=== PATIENT | female | born 1950 | race Caucasian/White ===

== ENCOUNTER 2017-09-02 11:05 | Day surgery (SDC) | payer OTHER ==
[~2017-09-02] VITALS: Ht 170.2 cm; Wt 79.4 kg
[~2017-09-02 11:05] MED LIST: AMLO5TAB2 PO; ASPI81TA27 PO; CHOL500021 PO; EMPA1TAB PO; FURO20TA3 PO; GLIP-115 PO; ISOSTAB PO; LISI-275 PO
[2017-09-02] MEDS ORDERED: LIDOCAINE 2%HCL (LOCAL ANESTH.) INJ 20ML MDV ONE (11:44)
[2017-09-02] MEDS ORDERED: IODIXANOL 320MG/ML 100ML BTL IV ONE (11:44)
[2017-09-02] MEDS ORDERED: ANGIOMAX 250 MG VIAL IV ONE (12:54)
[2017-09-02] MEDS ORDERED: SODIUM CHL 0.9% 50 ML ONE (12:54)
[2017-09-02] MEDS ORDERED: MIDAZOLAM HCL 1MG/1ML-2 ML VIAL ONE (12:54)
[2017-09-02] MEDS ORDERED: fentaNYL CITRATE 100 MCG/2 ML VL ONE (12:54)
[2017-09-02] MEDS ORDERED: NITROGLYCERIN 0.4MG/DOSE SPRAY 4.9GM ONE (13:16)
== END 2017-09-02 16:15 | disposition home or self-care (01) ==
LOC: CATH 11:05
PROVIDERS: ATTEND Internal Medicine
DX: I73.9 Peripheral vascular disease, unspecified (principal); E66.9 Obesity, unspecified; Z68.27 Body mass index [BMI] 27.0-27.9, adult; I10 Essential (primary) hypertension; E11.9 Type 2 diabetes mellitus without complications
CPT/HCPCS: 36247; 75716; C1725; C1760; C1769; C1887; C1894; J0583; J1644; J2250; J3010; J7030; Q9967; 99152; 99153

== ENCOUNTER 2018-01-25 10:11 | Inpatient (IN) | payer OTHER ==
[~2018-01-25] VITALS: Ht 170.2 cm; Wt 74.4 kg
[2018-01-25 10:56] LABS: Basophils # (auto) 0.1 uL; Eosinophils # (auto) 0.1 uL; Eosinophils % (auto) 1.2 % (0.0-7.0); Hematocrit 36.4 % (36.0-46.0); Lymphocytes # (auto) 1.2 uL; Lymphocytes % (auto) 16.2 % (10.0-50.0); Mean Corpuscular Hemoglobin 29.5 pg (28.0-32.0); Mean Corpuscular Hgb Conc. 32.9 g/dL (32.0-36.0); Mean Corpuscular Volume 89.8 fL (80.0-100.0); Monocytes # (auto) 0.7 uL; Neutrophils # (auto) 5.3 uL; Neutrophils % (auto) 72.6 % (37.0-80.0); Nucleated Red Blood Cells % 0.2 %; Platelet Count (auto) 339 10^3/uL (140-450); Red Blood Cells 4.05 10^6/uL (4.0-5.20); Red Cell Distribution Width 14.5 % (11.8-14.3); White Blood Cell 7.4 10^3/uL (4.4-10.8)
[2018-01-25] MEDS ORDERED: SODIUM CHLORIDE 0.9% 1,000 ML IVB ONE (11:08)
[2018-01-25] MEDS ORDERED: SODIUM CHLORIDE 0.9% 1,000 ML IV ONE (11:08)
[2018-01-25 11:22] LABS: Albumin 2.9 g/dL (3.4-5.0); BUN/Creatinine Ratio 14.1; Bilirubin, Total 0.5 mg/dL (0.2-1.0); Calcium 9.4 mg/dL (8.5-10.1); Magnesium 2.8 mg/dL (1.6-2.6); Potassium 3.6 mmol/L (3.5-5.1); Total Protein 8.7 g/dL (6.4-8.2)
[2018-01-25] MEDS ORDERED: MORPHINE SULF(PF) 0.5MG/ML 10ML VIAL IV PRN (13:30)
[2018-01-25] MEDS ORDERED: NALBUPHINE HCL 10 MG/1ml INJECTION IV PRN (13:30)
[2018-01-25] MEDS ORDERED: TEMAZEPAM 15 MG CAP PO PRN (13:30)
[2018-01-25] MEDS ORDERED: LACTULOSE 20Gm/30ML SOLN PO PRN (13:30)
[2018-01-25] MEDS ORDERED: ACETAMINOPHEN 500 MG TAB PO PRN (13:30)
[2018-01-25] MEDS ORDERED: NITROGLYCERIN 0.4 MG SL TAB SL PRN (13:30)
[2018-01-25] MEDS ORDERED: DEXTROSE (50%) 50ML SYRG IV PRN (13:30)
[2018-01-25] MEDS ORDERED: LABETALOL HCL 5 MG/ML ML 20ML VIAL IV PRN (13:30)
[2018-01-25] MEDS ORDERED: HYDROcodone-ACET 5/325MG TAB PO PRN (13:30)
[2018-01-25] MEDS ORDERED: LORazepam 0.5 MG TAB PO PRN (13:30)
[2018-01-25] MEDS: SODIUM CHLORIDE 0.9% 1,000 ML IV SCH ×2 (13:58→23:32)
[2018-01-25 14:01] LABS: Folate (Folic Acid) 15.57 ng/mL (5.38-24)
[2018-01-25 14:24] LABS: CRP High Sensitivity 4.3 mg/dL (< 0.3)
[2018-01-25] MEDS: InsuLIN REG 1unit/0.01ml Soln (100units/ml) SC SCH ×2 (17:00→21:07)
[2018-01-25] MEDS: ACCU-CHEK COMFORT CURVE STRIP VI SCH ×2 (17:38→21:07)
[2018-01-25 19:57] LABS: Urine Bacteria NONE SEEN /hpf (None Seen); Urine Blood Negative /uL (Negative); Urine Hyaline Cast FEW /lpf (0 - 2); Urine Mucus FEW (None Seen); Urine Specific Gravity 1.013 (1.001-1.035); Urine WBC 2 /hpf (0 - 5)
[2018-01-25 20:16] LABS: Alcohol, Urine < 3.0 mg/dL (0-5); Amphetamine Screen, Urine NEGATIVE (NEGATIVE); Barbiturate Scree,Urine NEGATIVE (NEGATIVE); Benzodiazephine Screen, Urine NEGATIVE (NEGATIVE); Cannabinoid Screen, Urine NEGATIVE (NEGATIVE); Cocaine Screen, Urine NEGATIVE (NEGATIVE); Opiate Scree,Urine NEGATIVE (NEGATIVE); Phencyclidine Screen, Urine NEGATIVE (NEGATIVE)
[2018-01-25 20:30] VITALS: BP 139/49
[2018-01-25 22:00] VITALS: BP 128/54
[2018-01-25] MEDS ORDERED: ATORVASTATIN 20 MG TAB PO SCH (22:00)
[2018-01-26] MEDS: InsuLIN REG 1unit/0.01ml Soln (100units/ml) SC SCH ×4 (04:58→22:00)
[2018-01-26 05:00] VITALS: BP 178/67
[2018-01-26] MEDS: ACCU-CHEK COMFORT CURVE STRIP VI SCH ×4 (05:11→22:00)
[2018-01-26 05:48] VITALS: BP 159/76
[2018-01-26 06:53] LABS: Basophils # (auto) 0.1 uL; Basophils % (auto) 0.8 % (0.0-2.0); Eosinophils # (auto) 0.1 uL; Eosinophils % (auto) 1.8 % (0.0-7.0); Hematocrit 33.8 % (36.0-46.0); Hemoglobin 11.4 g/dL (12.2-16.2); Lymphocytes # (auto) 1.1 uL; Lymphocytes % (auto) 17.4 % (10.0-50.0); Mean Corpuscular Hemoglobin 29.8 pg (28.0-32.0); Mean Corpuscular Hgb Conc. 33.8 g/dL (32.0-36.0); Mean Corpuscular Volume 88.2 fL (80.0-100.0); Monocytes # (auto) 0.9 uL; Monocytes % (auto) 14.2 % (0.0-12.0); Neutrophils % (auto) 65.8 % (37.0-80.0); Nucleated Red Blood Cells % 0.1 %; Platelet Count (auto) 281 10^3/uL (140-450); Red Blood Cells 3.84 10^6/uL (4.0-5.20); Red Cell Distribution Width 14.3 % (11.8-14.3); White Blood Cell 6.1 10^3/uL (4.4-10.8)
[2018-01-26 07:13] LABS: Albumin 2.7 g/dL (3.4-5.0); BUN/Creatinine Ratio 20.6; Bilirubin, Total 0.4 mg/dL (0.2-1.0); Calcium 8.5 mg/dL (8.5-10.1); Total Protein 7.7 g/dL (6.4-8.2)
[2018-01-26] MEDS ORDERED: glipiZIDE 5 MG TAB PO SCH (10:00)
[2018-01-26] MEDS: ENOXAPARIN SOD 40 MG/0.4 ML SYRINGE SC SCH (10:00)
[2018-01-26] MEDS ORDERED: ASPirin-EC 81 mg tab PO SCH (10:00)
[2018-01-26] MEDS: SODIUM CHLORIDE 0.9% 1,000 ML IV SCH ×2 (11:28→15:45)
[2018-01-26] MEDS ORDERED: CLOP75TA41 PO (11:33)
[2018-01-26] MEDS ORDERED: ATOR20TA50 PO (11:44)
[2018-01-26] MEDS ORDERED: CLOPIDOGREL BISULFATE 75 MG TAB PO ONE (11:45)
[2018-01-26] MEDS ORDERED: TRAM50TA2 PO (11:46)
[2018-01-26 13:00] VITALS: BP 160/72
[2018-01-26] MEDS ORDERED: traMADol HCL 50 MG TAB PO PRN (13:30)
[2018-01-26] MEDS ORDERED: LISINOPRIL 5 MG TAB PO ONE (13:45)
[2018-01-26] MEDS ORDERED: CHOLECALCIFEROL (VITD3) 1,000 UNIT TAB PO ONE (13:45)
[2018-01-26] MEDS ORDERED: FUROSEMIDE 20 MG TAB PO ONE (13:45)
[2018-01-26] MEDS ORDERED: POTASSIUM CHL 20 Meq TABLET PO ONE (15:45)
[2018-01-26] MEDS ORDERED: MAGNESIUM SULFATE 1GM/100ML 100 ML IV SCH (16:00)
[2018-01-26] MEDS ORDERED: IOHEXOL 350 MG/ML 100ML IJ ONE (16:37)
[2018-01-26 17:00] VITALS: BP 116/54
[2018-01-26 20:00] VITALS: BP 123/85
[2018-01-26 22:00] VITALS: BP 148/72
[2018-01-26] MEDS ORDERED: ATORVASTATIN 20 MG TAB PO SCH (22:00)
[2018-01-26] MEDS: ISOSORBIDE DINITRATE 10 MG TAB PO SCH (22:00)
[2018-01-26] MEDS: LISINOPRIL 5 MG TAB PO SCH (22:00)
[2018-01-27 05:00] VITALS: BP 139/64
[2018-01-27 05:57] LABS: Basophils # (auto) 0 uL; Basophils % (auto) 0.9 % (0.0-2.0); Eosinophils # (auto) 0.1 uL; Eosinophils % (auto) 1.5 % (0.0-7.0); Hematocrit 32.1 % (36.0-46.0); Lymphocytes # (auto) 0.9 uL; Lymphocytes % (auto) 16.6 % (10.0-50.0); Mean Corpuscular Hemoglobin 30.2 pg (28.0-32.0); Mean Corpuscular Hgb Conc. 34.1 g/dL (32.0-36.0); Mean Corpuscular Volume 88.6 fL (80.0-100.0); Monocytes # (auto) 0.9 uL; Monocytes % (auto) 16.2 % (0.0-12.0); Neutrophils # (auto) 3.5 uL; Neutrophils % (auto) 64.8 % (37.0-80.0); Nucleated Red Blood Cells % 0.1 %; Platelet Count (auto) 286 10^3/uL (140-450); Red Blood Cells 3.63 10^6/uL (4.0-5.20); Red Cell Distribution Width 14.4 % (11.8-14.3); White Blood Cell 5.4 10^3/uL (4.4-10.8)
[2018-01-27] MEDS: SODIUM CHLORIDE 0.9% 1,000 ML IV SCH (06:16)
[2018-01-27 06:19] LABS: Potassium 3.4 mmol/L (3.5-5.1)
[2018-01-27 06:23] LABS: BUN/Creatinine Ratio 16.7; Calcium 8.7 mg/dL (8.5-10.1)
[2018-01-27] MEDS: ACCU-CHEK COMFORT CURVE STRIP VI SCH ×3 (06:34→17:00)
[2018-01-27] MEDS: InsuLIN REG 1unit/0.01ml Soln (100units/ml) SC SCH ×3 (06:34→17:00)
[2018-01-27] MEDS ORDERED: glipiZIDE 5 MG TAB PO SCH (07:00)
[2018-01-27] MEDS ORDERED: JARDIANCE 10 MG TAB PO SCH (07:00)
[2018-01-27 08:00] VITALS: BP 139/64
[2018-01-27 09:06] VITALS: BP 156/59
[2018-01-27] MEDS: ISOSORBIDE DINITRATE 10 MG TAB PO SCH (09:19)
[2018-01-27] MEDS: LISINOPRIL 5 MG TAB PO SCH (09:23)
[2018-01-27] MEDS: ENOXAPARIN SOD 40 MG/0.4 ML SYRINGE SC SCH (10:00)
[2018-01-27] MEDS ORDERED: CHOLECALCIFEROL (VITD3) 1,000 UNIT TAB PO SCH (10:00)
[2018-01-27] MEDS ORDERED: CLOPIDOGREL BISULFATE 75 MG TAB PO SCH (10:00)
[2018-01-27] MEDS ORDERED: LISINOPRIL 5 MG TAB PO SCH (10:00)
[2018-01-27] MEDS ORDERED: FUROSEMIDE 20 MG TAB PO SCH (10:00)
[2018-01-27 13:00] VITALS: BP 160/72
[2018-01-27 16:35] VITALS: BP 166/74
== END 2018-01-27 19:00 | disposition home or self-care (01) | DRG 683 ==
LOC: ER 10:11 → TELE 10:12 → TELE-EAST 20:20 → TELE-WESTW 01-26 19:40
PROVIDERS: ADMIT Internal Medicine; ATTEND Internal Medicine
DX: N17.9 Acute kidney failure, unspecified (principal); E44.0 Moderate protein-calorie malnutrition; I13.0 Hypertensive heart and chronic kidney disease with heart failure and stage 1 through stage 4 chronic kidney disease, or unspecified chronic kidney disease; I95.1 Orthostatic hypotension; E86.0 Dehydration; E86.1 Hypovolemia; N18.3 Chronic kidney disease, stage 3 (moderate); I50.9 Heart failure, unspecified; E11.21 Type 2 diabetes mellitus with diabetic nephropathy; E11.22 Type 2 diabetes mellitus with diabetic chronic kidney disease; I70.90 Unspecified atherosclerosis; E11.51 Type 2 diabetes mellitus with diabetic peripheral angiopathy without gangrene; E11.621 Type 2 diabetes mellitus with foot ulcer; F03.90 Unspecified dementia, unspecified severity, without behavioral disturbance, psychotic disturbance, mood disturbance, and anxiety; I70.0 Atherosclerosis of aorta; K59.00 Constipation, unspecified; L97.509 Non-pressure chronic ulcer of other part of unspecified foot with unspecified severity; Z86.73 Personal history of transient ischemic attack (TIA), and cerebral infarction without residual deficits; Z79.899 Other long term (current) drug therapy; Z79.82 Long term (current) use of aspirin; Z68.25 Body mass index [BMI] 25.0-25.9, adult
CPT/HCPCS: 36415; 71046; 71275; 73630; 80048; 80053; 80307; 81001; 81002; 82550; 82607; 82746; 82962; 83036; 83735; 83880; 84443; 84484; 85025; 85379; 85652; 86141; 87040; 93005; 93306; 93886; 94761; 96360

== ENCOUNTER 2020-01-05 10:26 | Inpatient (IN) | payer OTHER ==
[~2020-01-05] VITALS: Ht 170.2 cm; Wt 89.4 kg
[~2020-01-05 10:26] MED LIST changes: -AMLO5TAB2 PO; -ASPI81TA27 PO; +ATOR20TA50 PO; +CLOP75TA41 PO; -GLIP-115 PO; +GLIP5TAB12 PO; +TRAM50TA2 PO
[2020-01-05 11:10] LABS: Basophils # (auto) 0.1 10 ^3/uL (0-0.2); Basophils % (auto) 1.4 % (0.0-2.0); Eosinophils # (auto) 0.1 10 ^3/uL (0-0.8); Eosinophils % (auto) 1.6 % (0.0-7.0); Hematocrit 43.7 % (36.0-46.0); Hemoglobin 14.5 g/dL (12.2-16.2); Lymphocytes # (auto) 1.4 10 ^3/uL (0.4-5.4); Lymphocytes % (auto) 21.8 % (10.0-50.0); Mean Corpuscular Hemoglobin 32.1 pg (28.0-32.0); Mean Corpuscular Hgb Conc. 33.3 g/dL (32.0-36.0); Mean Corpuscular Volume 96.5 fL (80.0-100.0); Monocytes # (auto) 0.8 10 ^3/uL (0-1.3); Monocytes % (auto) 12.8 % (0.0-12.0); Neutrophils % (auto) 62.4 % (37.0-80.0); Nucleated Red Blood Cells % 0.1 %; Platelet Count (auto) 181 10^3/uL (140-450); Red Blood Cells 4.53 10^6/uL (4.0-5.20); Red Cell Distribution Width 14.6 % (11.8-14.3); White Blood Cell 6.3 10^3/uL (4.4-10.8)
[2020-01-05 11:24] LABS: Albumin 3.2 g/dL (3.4-5.0); Calcium 8.9 mg/dL (8.5-10.1); Potassium 3.6 mmol/L (3.5-5.1)
[2020-01-05 11:35] LABS: BUN/Creatinine Ratio 19.7; Bilirubin, Total 0.9 mg/dL (0.2-1.0); Total Protein 8.1 g/dL (6.4-8.2)
[2020-01-05 12:27] LABS: INR 1.13 (0.9-1.15); Partial Thromboplastin Time 27.1 sec (23.64-32.05)
[2020-01-05] MEDS ORDERED: FUROSEMIDE 20 MG/2 ML VIAL IV ONE (12:30)
[2020-01-05 14:04] LABS: Urine Bacteria NONE SEEN /hpf (None Seen); Urine Blood TRACE /uL (Negative); Urine Mucus FEW (None Seen); Urine Specific Gravity 1.011 (1.001-1.035); Urine WBC <1 /hpf (0 - 5)
[2020-01-05] MEDS ORDERED: NITROGLYCERIN 0.4 MG SL TAB SL PRN (16:30)
[2020-01-05] MEDS ORDERED: ALBUTEROL SULF 2.5 MG/0.5ML(0.5%) NEB SOLN NEB PRN (16:30)
[2020-01-05] MEDS ORDERED: MORPHINE SULF INJ 2 MG/ML SYRINGE 1ML IV PRN (16:30)
[2020-01-05] MEDS ORDERED: DEXTROSE (50%) 50ML SYRG IV PRN (16:30)
[2020-01-05] MEDS ORDERED: FUROSEMIDE 40 MG/4 ML VIAL IV ONE (16:30)
[2020-01-05] MEDS ORDERED: InsuLIN REG 1unit/0.01ml Soln (100units/ml) SC SCH (17:00)
[2020-01-05] MEDS ORDERED: ACCU-CHEK COMFORT CURVE STRIP VI SCH (17:00)
[2020-01-05 18:16] VITALS: BP 172/79
[2020-01-05 18:17] VITALS: BP 169/89
[2020-01-05] MEDS ORDERED: hydrALAZINE HCL 20 MG/ML VL IV PRN (18:45)
[2020-01-05] MEDS ORDERED: amLODIPine BESYLATE 5 MG TAB PO SCH (18:45)
[2020-01-05] MEDS ORDERED: DONEPEZIL HYDROCHLORIDE 5 MG TAB PO SCH (22:00)
[2020-01-05] MEDS ORDERED: ATORVASTATIN 20 MG TAB PO SCH (22:00)
[2020-01-06] MEDS ORDERED: FUROSEMIDE 20 MG/2 ML VIAL IV SCH (06:00)
[2020-01-06] MEDS ORDERED: LISINOPRIL 5 MG TAB PO SCH (10:00)
[2020-01-06] MEDS ORDERED: CLOPIDOGREL BISULFATE 75 MG TAB PO SCH (10:00)
== END 2020-01-05 18:35 | disposition left against medical advice (07) | DRG 291 ==
LOC: ER 10:26 → TELE-CENTR 10:27
PROVIDERS: ADMIT Internal Medicine; ATTEND Internal Medicine
DX: I13.0 Hypertensive heart and chronic kidney disease with heart failure and stage 1 through stage 4 chronic kidney disease, or unspecified chronic kidney disease (principal); I50.33 Acute on chronic diastolic (congestive) heart failure; F03.90 Unspecified dementia, unspecified severity, without behavioral disturbance, psychotic disturbance, mood disturbance, and anxiety; E78.5 Hyperlipidemia, unspecified; E11.22 Type 2 diabetes mellitus with diabetic chronic kidney disease; N18.3 Chronic kidney disease, stage 3 (moderate); I25.10 Atherosclerotic heart disease of native coronary artery without angina pectoris; I48.91 Unspecified atrial fibrillation; Z53.29 Procedure and treatment not carried out because of patient's decision for other reasons; Z79.02 Long term (current) use of antithrombotics/antiplatelets; Z86.73 Personal history of transient ischemic attack (TIA), and cerebral infarction without residual deficits
CPT/HCPCS: 36415; 71046; 80053; 81001; 82962; 83605; 83735; 83880; 84443; 84484; 85025; 85610; 85730; 87040; 93005; G0378

== ENCOUNTER 2021-03-03 06:37 | Day surgery (SDC) | payer OTHER ==
[~2021-03-03] VITALS: Ht 170.2 cm; Wt 87.1 kg
[~2021-03-03 06:37] MED LIST changes: +APIX5TAB PO; -CLOP75TA41 PO; +DONE1TAB88 PO; -EMPA1TAB PO; +FURO1TAB33 PO; -FURO20TA3 PO; -ISOSTAB PO; -TRAM50TA2 PO
[2021-03-03] MEDS ORDERED: LIDOCAINE 2%HCL (LOCAL ANESTH.) INJ 20ML MDV ONE (07:25)
[2021-03-03] MEDS ORDERED: ANGIOMAX 250 MG VIAL IV ONE (08:42)
[2021-03-03] MEDS ORDERED: fentaNYL CITRATE 100 MCG/2 ML VL ONE (08:42)
[2021-03-03] MEDS ORDERED: MIDAZOLAM HCL 2MG/2ML 2ml VIAL (1mg/ml) ONE (08:42)
[2021-03-03] MEDS ORDERED: SODIUM CHL 0.9% 0 ML ONE (08:43)
[2021-03-03] MEDS ORDERED: hydrALAZINE HCL 20 MG/ML VL ONE (09:38)
[2021-03-03] MEDS ORDERED: ONDANSETRON HCL 4 MG/2 ML VIAL IV PRN (10:30)
[2021-03-03] MEDS ORDERED: HYDROcodone-ACET 5/325MG TAB PO PRN (10:30)
[2021-03-03] MEDS ORDERED: ACETAMINOPHEN 500 MG TAB PO PRN (10:30)
== END 2021-03-03 12:37 | disposition home or self-care (01) ==
LOC: CATH 06:37
PROVIDERS: ATTEND Internal Medicine
DX: I70.213 Atherosclerosis of native arteries of extremities with intermittent claudication, bilateral legs (principal); I10 Essential (primary) hypertension; E78.5 Hyperlipidemia, unspecified; Z79.899 Other long term (current) drug therapy; Z20.822 Contact with and (suspected) exposure to COVID-19; Z98.890 Other specified postprocedural states
CPT/HCPCS: 36247; 75716; 93005; C1760; C1769; C1887; C1894; J0360; J1644; J2250; J3010; J7030; U0003; 99152; 99153

== ENCOUNTER 2023-07-31 16:13 | Emergency (ER) | payer OTHER ==
[~2023-07-31] VITALS: Ht 170.2 cm; Wt 82.0 kg
[2023-07-31 22:35] VITALS: BP 132/66; PULSE 68; RESP 14; TEMP 98.4; O2SAT 96
== END 2023-07-31 22:36 | disposition home or self-care (01) ==
LOC: ER 16:13
DX: M79.18 Myalgia, other site (principal); R10.9 Unspecified abdominal pain; I11.0 Hypertensive heart disease with heart failure; I50.9 Heart failure, unspecified; E11.9 Type 2 diabetes mellitus without complications; E78.5 Hyperlipidemia, unspecified; J44.9 Chronic obstructive pulmonary disease, unspecified; Z86.73 Personal history of transient ischemic attack (TIA), and cerebral infarction without residual deficits
CPT/HCPCS: 70450; 71045; 72100; 74176

== ENCOUNTER 2024-01-29 18:29 | Inpatient (IN) | payer OTHER ==
[~2024-01-29] VITALS: Ht 170.2 cm; Wt 76.7 kg
[~2024-01-29 18:29] MED LIST changes: -GLIP5TAB12 PO; +GLIP5TAB21 PO
[2024-01-29 19:06] VITALS: PULSE 79; RESP 16; O2SAT 97
[2024-01-29] MEDS: ONDANSETRON ODT 4 MG TAB PO ONE (20:13)
[2024-01-29] MEDS: SODIUM CHLORIDE 0.9% 1,000 ML IV ONE (20:13)
[2024-01-29 20:42] LABS: Basophils # (auto) 0.1 10 ^3/uL (0-0.2); Basophils % (auto) 0.8 % (0.0-2.0); Eosinophils # (auto) 0.1 10 ^3/uL (0-0.8); Eosinophils % (auto) 0.6 % (0.0-7.0); Hematocrit 37.4 % (36.0-46.0); Hemoglobin 12.3 g/dL (12.2-16.2); Lymphocytes # (auto) 1.1 10 ^3/uL (0.4-5.4); Lymphocytes % (auto) 11.9 % (10.0-50.0); Mean Corpuscular Hemoglobin 30.8 pg (28.0-32.0); Mean Corpuscular Volume 93.3 fL (80.0-100.0); Monocytes # (auto) 0.7 10 ^3/uL (0-1.3); Monocytes % (auto) 7.1 % (0.0-12.0); Neutrophils # (auto) 7.5 10 ^3/uL (1.6-8.6); Neutrophils % (auto) 79.6 % (37.0-80.0); Nucleated Red Blood Cells % 0.1 %; Red Blood Cells 4.01 10^6/uL (4.0-5.20); Red Cell Distribution Width 14.1 % (11.8-14.3); White Blood Cell 9.4 10^3/uL (4.4-10.8)
[2024-01-29 20:50] LABS: Alanine Aminotransferase 25 U/L (7-40); Albumin 3.7 g/dL (3.2-4.8); Alkaline Phosphatase 81 U/L (46-116); Anion Gap 7 (5-15); Aspartate Aminotransferase 32 U/L (13-40); BUN/Creatinine Ratio 12.7 (10.0-20.0); Bilirubin, Total 0.3 mg/dL (0.2-1.0); Blood Urea Nitrogen 21 mg/dL (9-23); Calcium 9.7 mg/dL (8.7-10.4); Carbon Dioxide 26 mmol/L (20-30); Chloride 106 mmol/L (98-107); Glucose 217 mg/dL (74-106); Potassium 4.4 mmol/L (3.5-5.1); Sodium 139 mmol/L (136-145); Total Protein 7.7 g/dL (5.7-8.2)
[2024-01-29 21:21] LABS: INR 1.08 (0.9-1.15); Partial Thromboplastin Time 27.3 SEC (24.5-34.5); Prothrombin Time 11.4 sec (9.3-11.8)
[2024-01-29] MEDS ORDERED: ACETAMINOPHEN 325 MG TAB PO PRN (23:00)
[2024-01-29] MEDS ORDERED: ONDANSETRON HCL 4 MG/2 ML VIAL IV PRN (23:00)
[2024-01-29 23:05] VITALS: PULSE 78; RESP 16; O2SAT 97
[2024-01-30] VITALS (9 sets, daily range): BP systolic 137–168; BP diastolic 54–108; PULSE 55–80; RESP 16–19; TEMP 97.4–98.3; O2SAT 97–100
[2024-01-30] MEDS ORDERED: GLIP5TAB21 PO (04:29)
[2024-01-30] MEDS ORDERED: FURO40TA4 PO (04:29)
[2024-01-30] MEDS ORDERED: MEMA1TAB3 PO (04:55)
[2024-01-30] MEDS ORDERED: LOSA-533 PO (09:54)
[2024-01-30] MEDS: ENOXAPARIN SOD 40 MG/0.4 ML SYRINGE SC SCH (10:54)
[2024-01-30] MEDS: PANTOPRAZOLE 40 MG/10 ML VIAL INJ IV SCH (10:54)
[2024-01-31] VITALS (9 sets, daily range): BP systolic 133–152; BP diastolic 49–96; PULSE 53–90; RESP 18–20; TEMP 97.2–98.6; O2SAT 94–97
[2024-01-31] MEDS ORDERED: AMLO1TAB22 PO (15:12)
[2024-01-31] MEDS ORDERED: MUPI2OIN2 TOP (15:12)
[2024-02-01 01:00] VITALS: BP 135/70; PULSE 80; RESP 20; TEMP 98; O2SAT 95
[2024-02-01 04:50] VITALS: BP 135/78; PULSE 81; RESP 18; TEMP 98; O2SAT 95
[2024-02-01 08:00] VITALS: PULSE 76
[2024-02-01 08:30] VITALS: BP 154/85; PULSE 85; RESP 20; TEMP 97.4; O2SAT 98
== END 2024-02-01 12:12 | disposition home health service (06) | DRG 682 ==
LOC: ER 18:29 → TELE 22:48 → TELE-WESTW 22:57
PROVIDERS: ADMIT Nurse Practitioner Family; ATTEND Nurse Practitioner Family
DX: N17.0 Acute kidney failure with tubular necrosis (principal); G93.41 Metabolic encephalopathy; I50.33 Acute on chronic diastolic (congestive) heart failure; G45.9 Transient cerebral ischemic attack, unspecified; I13.0 Hypertensive heart and chronic kidney disease with heart failure and stage 1 through stage 4 chronic kidney disease, or unspecified chronic kidney disease; N18.9 Chronic kidney disease, unspecified; E78.5 Hyperlipidemia, unspecified; I95.89 Other hypotension; G30.9 Alzheimer's disease, unspecified; F02.80 Dementia in other diseases classified elsewhere, unspecified severity, without behavioral disturbance, psychotic disturbance, mood disturbance, and anxiety; J44.9 Chronic obstructive pulmonary disease, unspecified; E11.22 Type 2 diabetes mellitus with diabetic chronic kidney disease; E11.51 Type 2 diabetes mellitus with diabetic peripheral angiopathy without gangrene; Z79.84 Long term (current) use of oral hypoglycemic drugs; Z86.73 Personal history of transient ischemic attack (TIA), and cerebral infarction without residual deficits
CPT/HCPCS: 36415; 70450; 71045; 80053; 83735; 83880; 84484; 85025; 85610; 85730; 93005; 93306; 96360; 97110; 97163; 97530; 99291; C9113; G0378; Q0162

== ENCOUNTER 2024-09-19 15:22 | Inpatient (IN) | payer OTHER ==
[~2024-09-19] VITALS: Ht 170.2 cm; Wt 65.7 kg
[~2024-09-19 15:22] MED LIST changes: +AMLO1TAB22 PO; -FURO1TAB33 PO; +FURO40TA4 PO; -LISI-275 PO; +LOSA-533 PO; +MEMA1TAB3 PO; +MUPI2OIN2 TOP
[2024-09-19] MEDS: SODIUM CHLORIDE 0.9% 1,000 ML IV ONE (15:42)
--- NOTE | 2024-09-19 15:48 | ED.PDOC ---
Altered Mental Status HPI Comments 74Y F with PMHx DM, HTN, HLD, CHF, CVA X3, TIA, and dementia presents to ED with for chief complaint ALOC. Per , pt was last seen normal 2hrs ago when pt was eating. Pt's then noticed pt breathing hard and she became unresponsive. Upon ED arrival, pt is only responsive to stimuli and is non verbal. Pt is being f/u by chicken raiser Dr. Hilario. Pt is on Eliquis and Amlodipine. Pt only takes the Amlodipine when SBP is >150. Pt's denies h/o tachycardia. No other symptoms reported. Time Seen by MD: 15:25 Primary Care Provider: Coleen Reviewed Notes: Nurses Notes, Medications, Allergies Allergies: Coded Allergies: NO KNOWN ALLERGIES (Unverified , 02/26/21) Home Meds Reported Medications Mupirocin (Pseudomonas Fluores (Mupirocin) 2 % Oin, 2 % TOP BID Apply ointment topically to affected area twice daily. 01/31/24 Amlodipine Besylate (Amlodipine Besylate) 5 Mg Tab, 1 TAB PO DAILY 01/31/24 Losartan Potassium (Losartan Potassium) 25 Mg Tab, 5 MG PO DAILY, MG 01/30/24 Memantine Hydrochloride (Memantine HCl) 5 Mg Tab, 5 MG PO, TAB 01/30/24 Glipizide (Glipizide) 5 Mg Tab, 5 MG PO DAILY for 30 Days, MG 01/30/24 Furosemide (Furosemide) 40 Mg Tab, 40 MG PO BID 01/30/24 Donepezil Hydrochloride (DONEPEZIL HCL) 10 Mg Tab, 10 MG PO DAILY 02/26/21 Apixaban Base (ELIQUIS) 5 Mg Tab, 5 MG PO BID 02/26/21 Atorvastatin Calcium (ATORVASTATIN CALCIUM) 20 Mg Tab, 1 TAB PO DAILY 01/26/18 Cholecalciferol (VITAMIN D) 5,000 Unit Tab, 5000 UNIT PO DAILY, TAB 08/29/17 Information Source: Spouse Mode of Arrival: Wheelchair Severity: Severe Timing: Hours Duration: Since onset Quality: Decreased Alertness, Change in Behavior, Confusion Recent: None History of: CVA, Dementia, Diabetes Associated Signs and Symptoms: None Past Medical History PAST MEDICAL HISTORY: CHF, CVA, Dementia, DM, High Lipids, HTN, TIA Surgical History: Denies all surgeries BOTTLED BEVERAGE INSPECTOR History: No Pertinent BOTTLED BEVERAGE INSPECTOR History Family History Family History: Reviewed,noncontributory to illness Social History Smoker: Non-Smoker Alcohol: Denies ETOH Use Drugs: Denies Drug Use Lives In: Home Unable to Obtain due to: Altered Mental Status, Medical Urgency Physical Exam General Appearance: No Apparent Distress, Normal HEENT: Normal ENT Inspection, Pharynx Normal, TMs Normal Neck: Full Range of Motion, Non-Tender, Normal, Normal Inspection Respiratory: Chest Non-Tender, Lungs Clear, No Accessory Muscle Use, No Respiratory Distress, Normal Breath Sounds Cardiovascular: No Edema, No JVD, No Murmur, No Gallop, Normal Peripheral Pulses, Regular Rate/Rhythm Breast Exam: Deferred Gastrointestinal: No Organomegaly, Non Tender, No Pulsatile Mass, Normal Bowel Sounds, Soft Genitalia: Deferred Pelvic: Deferred Rectal: Deferred Extremities: No calf tenderness, Normal capillary refill, Normal inspection, Normal range of motion, Non-tender, No pedal edema Musculoskeletal : Apperance: Normal Neurologic: Alert, economic research analyst II-XII nml as Tested, No Motor Deficits, Normal Affect, Normal Mood, No Sensory Deficits Cerebellar Function: NOT DONE Reflexes: NOT DONE Skin: Dry, Normal Color, Warm Lymphatic: No Adenopathy Was a procedure done? Was a procedure done?: No Differential Diagnosis (ALOC) Differential Diagnosis: CVA X-Ray, Labs, Meds, VS Vital Signs Date Time Temp Pulse Resp B/P (MAP) Pulse Ox O2 Delivery O2 Flow Rate FiO2 09/19/24 16:48 116 09/19/24 16:00 102 09/19/24 16:00 99 30 140/59 (86) 92 09/19/24 15:51 99.7 195 25 141/73 (95) 97 09/19/24 15:47 107 09/19/24 15:46 187 09/19/24 15:39 158 28 106/64 (78) 92 09/19/24 15:24 128 Lab Test 09/19/24 17:41 09/19/24 16:25 Range/Units Troponin I High Sensitivity Pending 47 *H </=34 ng/L White Blood Count 17.2 H 4.4-10.8 10^3/uL Red Blood Count 3.51 L 4.0-5.20 10^6/uL Hemoglobin 10.1 L 12.2-16.2 g/dL Hematocrit 31.5 L 36.0-46.0 % Mean Corpuscular Volume 89.9 80.0-100.0 fL Mean Corpuscular Hemoglobin 28.8 28.0-32.0 pg Mean Corpuscular Hemoglobin Concent 32.1 32.0-36.0 g/dL Red Cell Distribution Width 14.6 H 11.8-14.3 % Platelet Count 206 140-450 10^3/uL Mean Platelet Volume 10.2 6.9-10.8 fL Neutrophils (%) (Auto) 86.9 H 37.0-80.0 % Lymphocytes (%) (Auto) 6.8 L 10.0-50.0 % Monocytes (%) (Auto) 5.9 0.0-12.0 % Eosinophils (%) (Auto) 0.1 0.0-7.0 % Basophils (%) (Auto) 0.3 0.0-2.0 % Neutrophils # (Auto) 14.9 H 1.6-8.6 10 ^3/uL Lymphocytes # (Auto) 1.2 0.4-5.4 10 ^3/uL Monocytes # (Auto) 1.0 0-1.3 10 ^3/uL Eosinophils # (Auto) 0 0-0.8 10 ^3/uL Basophils # (Auto) 0 0-0.2 10 ^3/uL Nucleated Red Blood Cells 0.0 % Prothrombin Time 12.8 H 9.3-11.8 sec Prothrombin Time INR 1.23 H 0.9-1.15 Activated Partial Thromboplast Time 32.5 24.5-34.5 SEC Sodium Level 146 H 136-145 mmol/L Potassium Level 3.7 3.5-5.1 mmol/L Chloride Level 110 H 98-107 mmol/L Carbon Dioxide Level 26 20-31 mmol/L Anion Gap 10 5-15 Blood Urea Nitrogen 23 9-23 mg/dL Creatinine 1.07 H 0.550-1.02 mg/dL Glomerular Filtration Rate Calc 54 >90 mL/min BUN/Creatinine Ratio 21.5 H 10.0-20.0 Serum Glucose 293 H 74-106 mg/dL Lactic Acid Level 1.7 0.4-2.0 mmol/L Calcium Level 9.2 8.7-10.4 mg/dL Magnesium Level 1.7 1.6-2.6 mg/dL Total Bilirubin 0.5 0.2-1.0 mg/dL Aspartate Amino Transferase (AST) 15 13-40 U/L Alanine Aminotransferase (ALT) 12 7-40 U/L Alkaline Phosphatase 93 46-116 U/L B-Type Natriuretic Peptide 251.09 0-100 pg/mL Total Protein 7.3 5.7-8.2 g/dL Albumin 3.5 3.2-4.8 g/dL Current Medications Medications (Trade) Dose Ordered Sig/Elyssa Route Start Time Stop Time Status Last Admin Sodium Chloride 1,000 ml @ 1,000 mls/hr Q1H ONCE IV 09/19/24 15:45 09/19/24 16:44 DC 09/19/24 15:42 [place] [id number] Ph: [phone] DIAGNOSTIC IMAGING Diagnostic Imaging Report : [id number] Signed PATIENT: YANI PERSON ACCT: [id number] UNIT: [id number] : 1950 LOC: ER ROOM / BED: / AGE / SEX: 74 / F ADM STATUS: REG ER SERVICE [id number] ORDERING PHYSICIAN: JEAN-CLAUDE ROCHA MD PROCEDURE(s): CXRP - CHEST PORTABLE REASON: ams ORDER NUMBER(s): [id number], ACCESSION NUMBER(s): [id number] CHEST RADIOGRAPH Indication: ams Technique: Single frontal view of the chest was obtained Comparison: XY CHEST PORTABLE on DOS: 01/29/24, XY CHEST XRAY 1 VIEW on DOS: 07/31/23 FINDINGS: Lines and Tubes: AED pads over the chest. Lungs: No focal consolidation. Pleura: No effusion. Skin folds over the left upper lung field pneumothorax is of clinical concern recommend CT scan. Cardiomediastinal contours: Unremarkable Bones: No acute osseous abnormality. IMPRESSION: 1. AED pads over the chest. HS:Y ATED BY: ROSALIO EDMONDS Jr., DO DICTATED DATE/TIME: 09/19/241607 SIGNED BY: ROSALIO EDMONDS Jr., SIGNED DATE/TIME: 09/19/241607 CC: [facility] [id number] [place] [employer] [place] [id number] Ph: [phone] DIAGNOSTIC IMAGING Diagnostic Imaging Report : [id number] Signed PATIENT: YANI PERSON ACCT: [id number] UNIT: [id number] : 1950 LOC: ER ROOM / BED: / AGE / SEX: 74 / F ADM STATUS: REG ER SERVICE [id number] ORDERING PHYSICIAN: JEAN-CLAUDE ROCHA MD PROCEDURE(s): CTH - STROKE CTH REASON: ams ORDER NUMBER(s): [id number], ACCESSION NUMBER(s): [id number] Exam: CT STROKE CTH History: ams Technique: [address] images through the posterior fossa and the supratentorial compartment were acquired without contrast and imaged using soft tissue and bone algorithms. RADIATION DOSE: DLP 1158.77 mGy.cm; CTDI vol 53.38 mGy. Comparison: CT HEAD WITHOUT CONTRAST on DOS: 01/29/24 Findings: There is no evidence of an intracranial hemorrhage, acute large vessel infarct, mass effect, or midline shift. Decreased parenchymal attenuation of the left posterior parietal lobe with adjacent encephalomalacia. There is mild cerebral atrophy. Marked calcification of the carotid siphons. The calvarium, orbits, paranasal sinuses, sella, middle ears, and mastoids are unremarkable. The superficial soft tissues are within normal limits. Impression: 1. Age indeterminate left posterior parietal lobe infarct. Recommend MRI for further evaluation. 2. No evidence of intracranial hermorrhage. ATED BY: ZAINA RICHARDS DO DICTATED DATE/TIME: 09/19/241609 SIGNED BY: ZAINA RICHARDS DO SIGNED DATE/TIME: 09/19/241609 CC: Time of 1ST Reevaluation: 15:55 Reevaluation 1ST: Unchanged Patient Education/Counseling: Other Family Education/Counseling: Diagnosis, Treatment Departure 1 Departure Time of Disposition: 17:53 (Patient with an acute stroke. Patient is not a candidate for acute intervention. We will admit patient for further workup) Impression: Primary Impression: Acute stroke due to ischemia Additional Impression: Weakness Disposition: 09 ADMITTED INPATIENT Admit to: [facility] Condition: Guarded Critical Care Note Critical Care Time?: Yes Critical care comment: Acute CVA Authorized and Performed by: Jean-Claude Rocha MD Total critical care time: Approximately 49 minutes Due to a high probability of clinically significant, life threatening deterioration, the patient required my highest level of preparedness to intervene emergently and I personally spent this critical care time directly and personally managing the patient. This critical care time included obtaining a history; examining the patient; pulse oximetry; ordering and review of studies; arranging urgent treatment with development of a management plan; evaluation of patient's response to treatment; frequent reassessment; and, discussions with other providers. This critical care time was performed to assess and manage the high probability of imminent, life-threatening deterioration that could result in multi-organ failure. It was exclusive of separately billable procedures and treating other patients and teaching time. Please see my other sections and the rest of the note for further information on patient assessment and treatment. Stability Stability form required: No Heart Score Heart Score: Heart Score Response (Comments) Value History Slightly Suspicious 0 EKG Repolarization Disturb 1 Age >65 2 Risk Factors >3 or Hx ASHD 2 Troponin 1-2 x's Normal limit 1 Total 6 I personally scribed for JEAN-CLAUDE ROCHA MD ([employer]) on 09/19/24 at 15:48. Electronically submitted by Tari Cheng ([employer]). I personally scribed for JEAN-CLAUDE ROCHA MD (FAUSTINO) on 09/19/24 at 16:40. Electronically submitted by Tari Cheng ([employer]). JEAN-CLAUDE ROCHA MD Sep 19, 2024 15:48
[2024-09-19 16:00] VITALS: RESP 30; O2SAT 92
--- NOTE | 2024-09-19 16:10 | DVH ---
CHEST RADIOGRAPH Indication: ams Technique: Single frontal view of the chest was obtained Comparison: XY CHEST PORTABLE on DOS: 01/29/24, XY CHEST XRAY 1 VIEW on DOS: 07/31/23 FINDINGS: Lines and Tubes: AED pads over the chest. Lungs: No focal consolidation. Pleura: No effusion. Skin folds over the left upper lung field pneumothorax is of clinical concern recommend CT scan. Cardiomediastinal contours: Unremarkable Bones: No acute osseous abnormality. IMPRESSION: 1. AED pads over the chest. HS:Y
--- NOTE | 2024-09-19 16:13 | DVH ---
Exam: CT STROKE CTH History: ams Technique: [address] images through the posterior fossa and the supratentorial compart ment were acquired without contrast and imaged using soft tissue and bone algorithms. RADIATION DOSE: DLP 1158.77 mGy.cm; CTDI vol 53.38 mGy. Comparison: CT HEAD WITHOUT CONTRAST on DOS: 01/29/24 Findings: There is no evidence of an intracranial hemorrhage, acute large vessel infarct, mass effect, or midli ne shift. Decreased parenchymal attenuation of the left posterior parietal lobe with adjacent encephalomalacia. There is mild cerebral atrophy. Marked calcification of the carotid siphons. The calvarium, orbits, paranasal sinuses, sella, middle ears, and mastoids are unremarkable. The superficial soft tissues are within normal limits. Impression: 1. Age indeterminate left posterior parietal lobe infarct. Recommend MRI for further evaluation. 2. No evidence of intracranial hermorrhage.
[2024-09-19 16:37] LABS: Basophils # (auto) 0 10 ^3/uL (0-0.2); Basophils % (auto) 0.3 % (0.0-2.0); Eosinophils # (auto) 0 10 ^3/uL (0-0.8); Eosinophils % (auto) 0.1 % (0.0-7.0); Hematocrit 31.5 % (36.0-46.0); Hemoglobin 10.1 g/dL (12.2-16.2); Lymphocytes # (auto) 1.2 10 ^3/uL (0.4-5.4); Lymphocytes % (auto) 6.8 % (10.0-50.0); Mean Corpuscular Hemoglobin 28.8 pg (28.0-32.0); Mean Corpuscular Hgb Conc. 32.1 g/dL (32.0-36.0); Mean Corpuscular Volume 89.9 fL (80.0-100.0); Monocytes % (auto) 5.9 % (0.0-12.0); Neutrophils # (auto) 14.9 10 ^3/uL (1.6-8.6); Neutrophils % (auto) 86.9 % (37.0-80.0); Platelet Count (auto) 206 10^3/uL (140-450); Red Blood Cells 3.51 10^6/uL (4.0-5.20); Red Cell Distribution Width 14.6 % (11.8-14.3); White Blood Cell 17.2 10^3/uL (4.4-10.8)
--- NOTE | 2024-09-19 16:49 | ECG ---
[facility] Test Date: 2024-09-19 Test Time: 16:48:20 Pat Name: YANI PERSON Department: er Room: 0248T Gender: F Senior Interior Designer: gp : 1950 Requested By: JEAN-CLAUDE ROCHA Order Number: [id number] Reading MD: Efra Ruvalcaba Measurements Intervals [place] Rate: 116 P: -48 UT: 57 QRS: 64 QRSD: 90 T: 100 QT: 352 QTc: 490 Interpretive Statements Sinus or ectopic atrial tachycardia Ventricular premature complex Nonspecific repol abnormality, diffuse leads Electronically Signed On 09-20-2024 12:00:56 PST by Efra Ruvalcaba Please click the below link to view image of tracing.
[2024-09-19 16:50] LABS: Alanine Aminotransferase 12 U/L (7-40); Albumin 3.5 g/dL (3.2-4.8); Alkaline Phosphatase 93 U/L (46-116); Anion Gap 10 (5-15); Aspartate Aminotransferase 15 U/L (13-40); BUN/Creatinine Ratio 21.5 (10.0-20.0); Bilirubin, Total 0.5 mg/dL (0.2-1.0); Blood Urea Nitrogen 23 mg/dL (9-23); Calcium 9.2 mg/dL (8.7-10.4); Carbon Dioxide 26 mmol/L (20-31); Magnesium 1.7 mg/dL (1.6-2.6); Potassium 3.7 mmol/L (3.5-5.1); Total Protein 7.3 g/dL (5.7-8.2)
[2024-09-19 16:56] LABS: INR 1.23 (0.9-1.15); Partial Thromboplastin Time 32.5 SEC (24.5-34.5); Prothrombin Time 12.8 sec (9.3-11.8)
[2024-09-19 17:04] LABS: Chloride 110 mmol/L (98-107); Glucose 293 mg/dL (74-106); Sodium 146 mmol/L (136-145)
[2024-09-19] MEDS: IOHEXOL 350 MG/ML 100ML IJ ONE (17:28)
[2024-09-19] MEDS: IOHEXOL 300 MG/ML 100ML BOTTLE IJ ONE (17:28)
--- NOTE | 2024-09-19 17:31 | BSKYNEURO ---
Lupus Neuro Note # Demographics Consult Type: Acute Stroke Level 1 (0-4.5 hrs) Patient Location: Emergency Room First Name: YANI Last Name: RAZA Date of : 1950 Age: 74 Gender: Female Facility: [facility] Time of Initial Page (): 09/19/2024 16:39 Time of Return Call (): 09/19/2024 16:39 # HPI Chief Complaint: - altered mental state - speech changes History: 74F with history of 3 prior strokes/TIAs, on apixaban presents with sudden onset speech arrest and staring off to the right. Last Known Normal: 1300 # Scores Time of exam and NIHSS (): 09/19/2024 16:42 Level of Consciousness 1a: [0] = Alert; keenly responsive LOC Questions 1b: [2] = Answers neither correctly LOC Commands 1c: [2] = Performs neither correctly Best Gaze 2: [1] = Partial gaze palsy Visual 3: [2] = Complete hemianopia Facial Palsy 4: [2] = Partial paralysis Motor Arm Left 5a: [2] = Some effort against gravity Motor Arm Right 5b: [2] = Some effort against gravity Motor Leg Left 6a: [2] = Some effort against gravity Motor Leg Right 6b: [2] = Some effort against gravity Limb Ataxia 7: [0] = Absent Sensory 8: [2] = Severe to total sensory loss Best Language 9: [2] = Severe aphasia Dysarthria 10: [0] = Normal Extinction and Inattention 11: [2] = Profound juancho-inattention or extinction to more than one modality NIHSS Total: 23 # Data Time Head CT personally read by me (): 09/19/2024 16:[address]: - no bleed - per radiologist read left parietal encephalomalacia CTA Head: - no large vessel occlusion - preliminarily reviewed by me, please refer to radiology read for official reading CTA Neck: - patent vessels - preliminarily reviewed by me, please refer to radiology read for official re ading # Assessment Impression: - Ischemic Stroke (Acute) # Plan Thrombolytic/Intervention: NOT IV Thrombolysis or IA Intervention candidate Thrombolytic Exclusion: > 4.5 hours Intraarterial Exclusion: - no large vessel occlusion (LVO) - non-disabling Target Blood Pressure: - SBP < 220 - DBP < 105 Labs: - hemoglobin A1c - lipid panel Imaging: (urgency: routine): - MRI Brain without contrast Diagnostic Test: - echo without bubble study Therapy/Evaluation: - PT/OT evaluation - speech/swallow consultation Medication: ASA 325 x1 then 81 daily Atorvastatin 80, then tailor to LDL < 70 goal Hold apixaban pending MRI brain, timing to restart dependent on presence/size of acute stroke DVT Prophylaxis: - SCD - chemical DVT prophylaxis Other: - If patient has any neurological deterioration please call me back immediately - permissive hypertension - telemetry monitoring - I have discussed my recommendations with the referring provider Disposition: admit # Logistics Attestation of consult completion: The patient is located at: [facility]. Facility staff participated in the visit. I performed this telemedicine visit from my offsite office utilizing interactive 2 way audio and visual telecommunication technology. Consent: Verbal consent was obtained from the patient and/or family for this encounter. Total time spent in telemedicine encounter: I spent 10 minutes reviewing c linical data and/or imaging, obtaining history, examining the patient, communicating with the onsite care team, and in preparation of this report. Electronically signed at 09/19/2024 17:30 ([place] Time) by Carroll Billingsley MD Yes CARROLL BILLINGSLEY MD Sep 19, 2024 17:31
--- NOTE | 2024-09-19 17:57 | DVH ---
CT ANGIO HEAD/Neck INDICATION: c/f cva EXAM DATE: 09/19/2024 05:14 PM COMPARISON: None TECHNIQUE: AFTER THE INTRAVENOUS INFUSION CONTRAST IMAGES WERE OBTAINED HEAD AND NECK 1 POINT 2 5 MM SLICE SAGITTAL AND CORONAL REFORMATIONS WERE OBTAINED MIP IMAGES WERE SUBMITTED FOR EVALUATION. RADIATION DOSE: CTDIvol: 22.36 mGy, DLP: 804.89 mGy*cm Omnipaque 350: 90 mL PROCEDURE: CT angiogram images were obtained of the head and neck. Coronal and sagittal reformatted i mages were created as well as 3D and/or MIP reconstructions. All CT scans at this medical facility are performed using dose modulation techniques as appropriate t o a performed exam including the following: Automated exposure control was utilized; adjustment of th e MA and/or KV according to patient size; and use of iterative reconstruction technique. FINDINGS: Head: The brain shows normal morphology and booker-white matter differentiation, without intracranial hemorrh age, mass effect, extra-axial fluid collection, or abnormal contrast enhancement. The ventricles are normal in size. The skull and visible facial bones are intact. The paranasal sinuses, mastoid air sammy ls, and middle ear cavities are normally aerated. The soft tissues of the scalp and face are unremark able. On the CT angiographic images, the internal carotid arteries are normal in caliber from the skull bas e to their bifurcations. The anterior and middle cerebral arteries and their branches appear normal. The anterior communicating artery appears normal. The bilateral posterior communicating arteries are normal. The vertebral arteries are codominant. The vertebral, basilar, superior cerebellar, and poste rior cerebral arteries are normal in caliber. No aneurysm, arteriovenous malformation, or stenosis is visible. Neck: The common carotid, internal carotid, external carotid, and vertebral arteries are normal in caliber. The vertebral arteries are codominant. The visualized intracranial arteries are normal. There is no evidence of contrast extravasation, filling defects, stenosis, or dissection. The pharynx and airway are normal. The thyroid, submandibular, and parotid glands appear normal. No l ymphadenopathy is seen. The visualized intracranial structures are unremarkable. Bony fusion cervical spine from C4 through T2. IMPRESSION: 1. No intracranial aneurysm or large vessel occlusion 2. No significant cervical carotid stenosis or large vessel occlusion. 3. Bony fusion of the cervical spine from C4 through T2. Normal CT angiographic findings of the head and neck. HS:Y
--- NOTE | 2024-09-19 17:59 | ECG ---
[facility] Test Date: 2024-09-19 Test Time: 15:35:27 Pat Name: YANI PERSON Department: ER Room: 0248T Gender: F General Repair Mechanic: ISHA : 1950 Requested By: JEAN-CLAUDE ROCHA Order Number: [id number] Reading MD: Efra Ruvalcaba Measurements Intervals [place] Rate: 179 P: 226 PA: 128 QRS: 31 QRSD: 82 T: 198 QT: 262 QTc: 453 Interpretive Statements Supraventricular tachycardia Abnormal R-wave progression, early transition LVH with secondary repolarization abnormality ST depression, probably rate related Electronically Signed On 09-20-2024 12:00:40 PST by Efra Ruvalcaba Please click the below link to view image of tracing.
[2024-09-19 18:19] LABS: Urine Bacteria None Seen /hpf (None Seen)
[2024-09-19 18:44] LABS: Urine Blood Negative /uL (Negative); Urine Clarity Clear (Clear); Urine Color Yellow (Yellow); Urine Hyaline Cast FEW /lpf (0 - 2); Urine Protein, UAD 1+ (Negative); Urine Specific Gravity 1.045 (1.001-1.035); Urine Squamous Epithelial Cell FEW /hpf (<5); Urine Urobilinogen 2 mg/dL (Negative); Urine WBC 1 /HPF (0-5)
[2024-09-19 19:30] VITALS: RESP 12; O2SAT 98
[2024-09-19] MEDS ORDERED: DOCUSATE SOD 100 MG CAP PO PRN (23:00)
[2024-09-19] MEDS ORDERED: hydrALAZINE HCL 20 MG/ML VL IV PRN (23:00)
[2024-09-19] MEDS ORDERED: ONDANSETRON HCL 4 MG/2 ML VIAL IV PRN (23:00)
[2024-09-19] MEDS ORDERED: NITROGLYCERIN 0.4 MG SL TAB SL PRN (23:00)
[2024-09-19] MEDS ORDERED: ACETAMINOPHEN 325 MG TAB PO PRN (23:00)
[2024-09-19] MEDS ORDERED: DEXTROSE (50%) 50ML SYRG IV PRN (23:00)
[2024-09-19] MEDS ORDERED: MORPHINE SULFATE INJ 2 MG/ml SYRG IV PRN (23:00)
[2024-09-20] VITALS (9 sets, daily range): BP systolic 123–160; BP diastolic 52–89; PULSE 63–79; RESP 17–98; TEMP 97.4–99.1; O2SAT 96–100
[2024-09-20] MEDS: InsuLIN REG 1unit/0.01ml Soln (100units/ml) SC SCH (01:38)
[2024-09-20] MEDS: ACCU-CHEK COMFORT CURVE STRIP VI SCH (01:39)
--- NOTE | 2024-09-20 02:21 | DVHHP2 ---
JORGE HONG FILM SOUND ENGINEER 09/20/24 0221: History of Present Illness Reason for Visit: AMS History of Present Illness 74-year-old female with past history of CVA, dementia, COPD, CHF, hypertension, hyperlipidemia Presents with complaints of sudden onset Altered mental status. Information in this HPI is limited due to the patient's current cognitive status And acquired from the patient Franco via telephone. Patient states At her bedline the patient is bedbound and Speaks small phrases softly. He has to carry her and move her around. Also endorses She was having difficulty swallowing her food during breakfast. The patient was sitting down eating lunch She having difficulty swallowing her food, Began To experience difficulty breathing, And suddenly became altered. While in the emergency department patient did go into An accelerated Cardiac rhythm 158 to 187. Endorsed her floral designer salesperson is Dr. Hilario. There is no reported fevers, chills, Prior episodes of shortness of breath, chest pain, leg swelling Cardiovascular: CHF, HTN, hyperipidemia Pulmonary: COPD Endocrine: Diabetes Smoke: No ALCOHOL: none Drugs: None Lives: with Family Review of Systems Constitutional: No: Fever, Chills, Sweats, Weakness, Malaise, Other Eyes: No: Pain, Vision change, Conjunctivae inflammation, Eyelid inflammation, Other, Redness ENT: No: Ear pain, Ear discharge, Nose pain, Nose discharge, Nose congestion, Mouth pain, Mouth swelling, Throat pain, Throat swelling, Other Respiratory: Shortness of breath; No: Cough, Dry, SOB with excertion, Wheezing, Hemoptysis, Pleuritic Pain, Sputum, Wheezing, Other Gastrointestinal: No: Nausea, Vomiting, Abdominal Pain, Diarrhea, Constipation, Melena, Hematochezia, Other Genitourinary: No Dysuria, No Frequency, No Incontinence, No Hematuria, No Retention, No Other Musculoskeletal: No: other, neck pain, shoulder pain, arm pain, back pain, hand pain, leg pain, foot pain Skin: No: Rash, Lesions, Jaundice, Bruising, Other Neurological: Weakness, Confusion; No: Numbness, Incoordination, Change in speech, Seizures, Other Allergies: Coded Allergies: NO KNOWN ALLERGIES (Unverified , 02/26/21) Medications Current Medications Medications Dose Ordered Sig/Elyssa Route Start Time Stop Time Status Last Admin Dose Admin Docusate Sodium 100 mg BIDPRN PRN PO 09/19/24 23:00 Acetaminophen 650 mg Q6HP PRN PO 09/19/24 23:00 Ondansetron HCl 4 mg Q4HP PRN IV 09/19/24 23:00 Enoxaparin Sodium 40 mg DAILY SC 09/20/24 10:00 Nitroglycerin 0.4 mg Q5MINP PRN SL 09/19/24 23:00 Morphine Sulfate 2 mg Q30M PRN IV 09/19/24 23:00 Diagnostic Test (Pha) 1 strip Q6HR 09/20/24 00:00 09/20/24 01:39 1 STRIP Insulin Human Regular Q6HR SC 09/20/24 00:00 09/20/24 01:38 4 UNITS Dextrose 50 ml UD PRN IV 09/19/24 23:00 Aspirin 81 mg DAILY PO 09/20/24 10:00 Atorvastatin Calcium 80 mg DAILY PO 09/20/24 10:00 Hydralazine HCl 10 mg Q6HPRN PRN IV 09/19/24 23:00 Exam Vital Signs Vital Signs Date Time Temp Pulse Resp B/P (MAP) Pulse Ox O2 Delivery O2 Flow Rate FiO2 09/19/24 23:30 68 09/19/24 20:00 19 130/51 (77) 95 09/19/24 19:30 Room Air* 0 21 09/19/24 15:51 99.7 General Appearance: Alert (To self. Not following commands), No acute distress HEENT: Atraumatic, PERRLA, EOMI Respiratory: Clear to auscultation, Normal air movement Cardiovascular: Regular rate, Normal S1, Normal S2 Abdominal: Normal bowel sounds, Soft, No tenderness Extremities: No clubbing, No cyanosis, No edema Skin: No rashes (One centimeter skin tear to sacrum) Neuro: Other (Patient not following commands. Looks when called by her name) Psych/Mental Status: Other Labs/Xrays Labs Test 09/19/24 19:40 09/19/24 18:02 09/19/24 16:25 Range/Units Troponin I High Sensitivity 55 *H </=34 ng/L Urine Color Yellow Yellow Urine Clarity Clear Clear Urine pH 6.0 5.0-9.0 Urine Specific [place] 1.045 H 1.001-1.035 Urine Protein 1+ H Negative Urine Ketones Negative Negative Urine Blood Negative Negative /uL Urine Nitrite Negative Negative Urine Bilirubin Negative Negative Urine Urobilinogen 2 H Negative mg/dL Urine Leukocyte Esterase Negative Negative /uL Urine RBC 2 0 - 4 /hpf Urine Microscopic WBC 1 0-5 /HPF Urine Squamous Epithelial Cells Few <5 /hpf Urine Bacteria None seen None Seen /hpf Urine Hyaline Casts Few 0 - 2 /lpf Urine Glucose 1+ H Normal mg/dL White Blood Count 17.2 H 4.4-10.8 10^3/uL Red Blood Count 3.51 L 4.0-5.20 10^6/uL Hemoglobin 10.1 L 12.2-16.2 g/dL Hematocrit 31.5 L 36.0-46.0 % Mean Corpuscular Volume 89.9 80.0-100.0 fL Mean Corpuscular Hemoglobin 28.8 28.0-32.0 pg Mean Corpuscular Hemoglobin Concent 32.1 32.0-36.0 g/dL Red Cell Distribution Width 14.6 H 11.8-14.3 % Platelet Count 206 140-450 10^3/uL Mean Platelet Volume 10.2 6.9-10.8 fL Neutrophils (%) (Auto) 86.9 H 37.0-80.0 % Lymphocytes (%) (Auto) 6.8 L 10.0-50.0 % Monocytes (%) (Auto) 5.9 0.0-12.0 % Eosinophils (%) (Auto) 0.1 0.0-7.0 % Basophils (%) (Auto) 0.3 0.0-2.0 % Neutrophils # (Auto) 14.9 H 1.6-8.6 10 ^3/uL Lymphocytes # (Auto) 1.2 0.4-5.4 10 ^3/uL Monocytes # (Auto) 1.0 0-1.3 10 ^3/uL Eosinophils # (Auto) 0 0-0.8 10 ^3/uL Basophils # (Auto) 0 0-0.2 10 ^3/uL Nucleated Red Blood Cells 0.0 % Prothrombin Time 12.8 H 9.3-11.8 sec Prothrombin Time INR 1.23 H 0.9-1.15 Activated Partial Thromboplast Time 32.5 24.5-34.5 SEC Sodium Level 146 H 136-145 mmol/L Potassium Level 3.7 3.5-5.1 mmol/L Chloride Level 110 H 98-107 mmol/L Carbon Dioxide Level 26 20-31 mmol/L Anion Gap 10 5-15 Blood Urea Nitrogen 23 9-23 mg/dL Creatinine 1.07 H 0.550-1.02 mg/dL Glomerular Filtration Rate Calc 54 >90 mL/min BUN/Creatinine Ratio 21.5 H 10.0-20.0 Serum Glucose 293 H 74-106 mg/dL Lactic Acid Level 1.7 0.4-2.0 mmol/L Calcium Level 9.2 8.7-10.4 mg/dL Magnesium Level 1.7 1.6-2.6 mg/dL Total Bilirubin 0.5 0.2-1.0 mg/dL Aspartate Amino Transferase (AST) 15 13-40 U/L Alanine Aminotransferase (ALT) 12 7-40 U/L Alkaline Phosphatase 93 46-116 U/L B-Type Natriuretic Peptide 251.09 0-100 pg/mL Total Protein 7.3 5.7-8.2 g/dL Albumin 3.5 3.2-4.8 g/dL Assessment/Plan Assessment/Plan Acute CVA SVT Elevated troponin Leukocytosis Hypertension CHF not in exacerbation Plan Admit telemetry Neurology consult. MRI brain. ASA, statin. Swallow evaluation per speech therapy. Physical therapy evaluation. Permissive hypertension. Cardiology consult. Echocardiogram. Serial troponin. As needed anti-hypertensive for optimal BP management Prophylactic Zosyn. Continue home medications. GI ppx protonix / DVT ppx lovenox Plan discussed with: Patient, Spouse My Orders Orders - JORGE HONG NP Procedure Category Date Status Time Admit ADMIT 09/19/24 Transmitted 22:54 Code Status CODE 09/19/24 Transmitted 22:54 Vital Signs EMILY 09/19/24 In Process 22:54 Review Orders With EMILY 09/19/24 In Process Adm. 22:54 Encourage Activity As EMILY 09/19/24 In Process Tolerate 22:54 Npo (Nothing By DIET 09/20/24 Transmitted Mouth) Diet Breakfast Oxygen By Face Mask RT 09/19/24 Transmitted 22:54 Docusate Sodium PHA 09/19/24 In Process Capsule (Colace 23:00 Acetaminophen Tablet PHA 09/19/24 In Process (Tylenol Tablet) 23:00 Notify Of Changes EMILY 09/19/24 In Process From Base 22:54 Advance Directive EMILY 09/19/24 In Process 22:54 Echo 2d Mode Cardiac US 09/19/24 Logged DOP 22:54 Basic Metabolic Panel LAB 09/20/24 Logged 05:00 Basic Metabolic Panel LAB 09/21/24 Verified 05:00 Basic Metabolic Panel LAB 09/22/24 Verified 05:00 Basic Metabolic Panel LAB 09/23/24 Verified 05:00 Complete Blood Count LAB 09/20/24 Logged 05:00 Complete Blood Count LAB 09/21/24 Verified 05:00 Complete Blood Count LAB 09/22/24 Verified 05:00 Complete Blood Count LAB 09/23/24 Verified 05:00 Complete Blood Count LAB 09/24/24 Verified 05:00 Patient Condition ORDERS 09/19/24 Transmitted 22:54 Allergies EMILY 09/19/24 In Process 22:54 Ondansetron Hcl PHA 09/19/24 In Process (Zofran) 23:00 Enoxaparin Sodium PHA 09/20/24 In Process (Lovenox) 10:00 Sequential EMILY 09/19/24 In Process Compression Device Nitroglycerin PHA 09/19/24 In Process Sublingual (Ntrostat 23:00 Morphine Sulfate PHA 09/19/24 In Process Injection 23:00 Stat Ekg For Chest EMILY 09/19/24 In Process Pain 22:54 Notify Of Changes EMILY 09/19/24 In Process From Base 22:54 Biofuels Plant Construction Worker For EMILY 09/19/24 In Process 24 Hours 22:54 Emergency Dysrhythmia EMILY 09/19/24 In Process Protocol 22:54 Rhythm Strips Once EMILY 09/19/24 In Process Every Shift 22:54 Oxygen By Nasal RT 09/19/24 Transmitted Cannula 22:54 Glucose Blood PHA 09/20/24 In Process (Accu-Chek Comfort 00:00 Insulin R (Human) PHA 09/20/24 In Process (Insulin R) 00:00 Dextrose 50% Syringe PHA 09/19/24 In Process 23:00 * Cardiology Consult CONS 09/19/24 Transmitted 22:54 * Neurology Consult CONS 09/19/24 Transmitted 22:54 Brain Head Wo Contrast MRI 09/19/24 Logged 22:54 Aspirin Tablet PHA 09/20/24 In Process 10:00 Atorvastatin (Lipitor) PHA 09/20/24 In Process 10:00 Pt Request For Service PT 09/19/24 Logged 22:54 * Swallow Request ST 09/19/24 Transmitted 22:54 Hydralazine Injection PHA 09/19/24 In Process (Apresoline Inject 23:00 Date of Service: Sep 20, 2024 Billing Provider: PATRIC BARNETT MD Common Visit Codes: NOT BILLABLE PATRIC BARNETT MD 09/20/24 1055: Review of Systems Allergies: Coded Allergies: NO KNOWN ALLERGIES (Unverified , 02/26/21) Assessment/Plan Assessment/Plan Patient was seen evaluated and chart is reviewed. Patient was seen and evaluated and admitted by nurse practitioner this morning. I agree with his evaluation, documentation, assessment and care plan as outlined. Plan discussed with: Other JORGE HONG NP Sep 20, 2024 02:21 PATRIC BARNETT MD Sep 20, 2024 10:55
[2024-09-20] MEDS: PIPERACILLIN-TAZOB 3.375GM 100 ML IV SCH (03:38)
--- NOTE | 2024-09-20 06:52 | ECG ---
[facility] Test Date: 2024-09-19 Test Time: 23:30:06 Pat Name: YANI PERSON Department: er Room: 0248T B Gender: F Odd Shoe Examiner: marc : 1950 Requested By: JEAN-CLAUDE ROCHA Order Number: [id number] Reading MD: Efra Ruvalcaba Measurements Intervals [place] Rate: 68 P: 0 IL: 0 QRS: 50 QRSD: 99 T: 44 QT: 418 QTc: 445 Interpretive Statements Atrial flutter Borderline repolarization abnormality Electronically Signed On 09-20-2024 12:01:12 PST by Efra Ruvalcaba Please click the below link to view image of tracing.
[2024-09-20 07:40] LABS: Basophils # (auto) 0.1 10 ^3/uL (0-0.2); Basophils % (auto) 0.7 % (0.0-2.0); Eosinophils # (auto) 0.2 10 ^3/uL (0-0.8); Eosinophils % (auto) 1.2 % (0.0-7.0); Hematocrit 31.1 % (36.0-46.0); Lymphocytes # (auto) 2.3 10 ^3/uL (0.4-5.4); Lymphocytes % (auto) 16.2 % (10.0-50.0); Mean Corpuscular Hemoglobin 28.9 pg (28.0-32.0); Mean Corpuscular Hgb Conc. 32.3 g/dL (32.0-36.0); Mean Corpuscular Volume 89.5 fL (80.0-100.0); Monocytes # (auto) 1.4 10 ^3/uL (0-1.3); Monocytes % (auto) 10.1 % (0.0-12.0); Neutrophils # (auto) 10.1 10 ^3/uL (1.6-8.6); Neutrophils % (auto) 71.8 % (37.0-80.0); Platelet Count (auto) 151 10^3/uL (140-450); Red Blood Cells 3.48 10^6/uL (4.0-5.20); Red Cell Distribution Width 14.6 % (11.8-14.3)
[2024-09-20 07:57] LABS: Anion Gap 9 (5-15); Calcium 9.4 mg/dL (8.7-10.4); Carbon Dioxide 28 mmol/L (20-31)
[2024-09-20 08:00] LABS: Chloride 111 mmol/L (98-107); Potassium 3.4 mmol/L (3.5-5.1); Sodium 148 mmol/L (136-145)
[2024-09-20 08:03] LABS: BUN/Creatinine Ratio 21.8 (10.0-20.0); Blood Urea Nitrogen 17 mg/dL (9-23); Glucose 110 mg/dL (74-106)
[2024-09-20] MEDS: ASPirin 81 mg TAB PO SCH (09:59)
[2024-09-20] MEDS: ATORVASTATIN 20 MG TAB PO SCH (10:00)
[2024-09-20] MEDS: ENOXAPARIN SOD 40 MG/0.4 ML SYRINGE SC SCH (11:20)
--- NOTE | 2024-09-20 11:34 | DVH ---
EXAMINATION: MRI BRAIN HEAD WO CONTRAST INDICATION: CVA COMPARISON: CTA head 09/19/2024 TECHNIQUE: Only axial diffusion and susceptibility weighted and axial T2 images were obtained. FINDINGS: The obtained MR images are degraded by motion artifact. There is no restricted diffusion to suggest a cute infarct.. There is a moderate size chronic infarct in the left parietal lobe. There is no gross evidence of hemorrhage, mass, mass effect or midline shift. There is no hydrocephalus or extra-axial fluid collection. The visualized intracranial vasculature demonstrates appropriate flow-voids. The vi sualized paranasal sinuses and mastoid air cells are clear. Impression: There is no evidence of acute infarct or obvious intracranial hemorrhage. HS:Y
--- NOTE | 2024-09-20 13:07 | DVHINCON2 ---
Date of service: Sep 20, 2024 History of Present Illness 74 [facility]x [facility] mild cad , CHF, HTN< PAD admitted for cva. pt became unresponsive per who takes care of her. Past Medical History reviewed Family History: FH: cirrhosis G8 MOTHER FH: hepatitis G8 MOTHER Allergies: Coded Allergies: NO KNOWN ALLERGIES (Unverified , 02/26/21) Home Meds Reported Medications Mupirocin (Pseudomonas Fluores (Mupirocin) 2 % Oin, 2 % TOP BID Apply ointment topically to affected area twice daily. 01/31/24 Amlodipine Besylate (Amlodipine Besylate) 5 Mg Tab, 1 TAB PO DAILY 01/31/24 Losartan Potassium (Losartan Potassium) 25 Mg Tab, 5 MG PO DAILY, MG 01/30/24 Memantine Hydrochloride (Memantine HCl) 5 Mg Tab, 5 MG PO, TAB 01/30/24 Glipizide (Glipizide) 5 Mg Tab, 5 MG PO DAILY for 30 Days, MG 01/30/24 Furosemide (Furosemide) 40 Mg Tab, 40 MG PO BID 01/30/24 Donepezil Hydrochloride (DONEPEZIL HCL) 10 Mg Tab, 10 MG PO DAILY 02/26/21 Apixaban Base (ELIQUIS) 5 Mg Tab, 5 MG PO BID 02/26/21 Atorvastatin Calcium (ATORVASTATIN CALCIUM) 20 Mg Tab, 1 TAB PO DAILY 01/26/18 Cholecalciferol (VITAMIN D) 5,000 Unit Tab, 5000 UNIT PO DAILY, TAB 08/29/17 Current Medications Current Medications Medications (Trade) Dose Ordered Sig/Elyssa Route PRN Reason Start Time Stop Time Status Last Admin Docusate Sodium (Colace Capsule) 100 mg BIDPRN PRN PO FOR CONSTIPATION 09/19/24 23:00 Acetaminophen (Tylenol Tablet) 650 mg Q6HP PRN PO PAIN SCALE 1-3 OR TEMP>100.4 09/19/24 23:00 Ondansetron HCl (Zofran) 4 mg Q4HP PRN IV NAUSEA / VOMITING 09/19/24 23:00 Enoxaparin Sodium (Lovenox) 40 mg DAILY SC 09/20/24 10:00 09/20/24 11:20 Nitroglycerin (Ntrostat Sublingual) 0.4 mg Q5MINP PRN SL FOR CHEST PAIN 09/19/24 23:00 Morphine Sulfate 2 mg Q30M PRN IV FOR CHEST PAIN 09/19/24 23:00 Diagnostic Test (Pha) (Accu-Chek Comfort Curve T) 1 strip Q6HR 09/20/24 00:00 09/20/24 11:28 Insulin Human Regular (InsuLIN R) Q6HR SC 09/20/24 00:00 09/20/24 01:38 Dextrose 50 ml UD PRN IV Blood Sugar LESS THAN 60 09/19/24 23:00 Aspirin 81 mg DAILY PO 09/20/24 10:00 Atorvastatin Calcium (Lipitor) 80 mg DAILY PO 09/20/24 10:00 Hydralazine HCl (Apresoline Injection) 10 mg Q6HPRN PRN IV SBP > 180; DBP > 100 09/19/24 23:00 Piperacillin Sod/ Tazobactam Sod 100 ml @ 25 mls/hr Q12HR IV 09/20/24 03:00 09/20/24 11:18 Review of Systems 10 pt ros otehrwise negative Vital Signs Vital Signs Date Time Temp Pulse Resp B/P (MAP) Pulse Ox O2 Delivery O2 Flow Rate FiO2 09/20/24 09:00 97.6 76 20 160/63 (95) 97 97.6 09/20/24 04:15 Room Air* 0 21 Physical Exam nad s1 s2 rrr ctab soft nt/nd no edema frail not responding, Labs/Diagnostic Data Labs Test 09/20/24 11:27 09/20/24 07:23 09/19/24 18:02 09/19/24 16:25 Range/Units POC Glucose 93 70-106 mg/dl White Blood Count 14.0 H 4.4-10.8 10^3/uL Red Blood Count 3.48 L 4.0-5.20 10^6/uL Hemoglobin 10.0 L 12.2-16.2 g/dL Hematocrit 31.1 L 36.0-46.0 % Mean Corpuscular Volume 89.5 80.0-100.0 fL Mean Corpuscular Hemoglobin 28.9 28.0-32.0 pg Mean Corpuscular Hemoglobin Concent 32.3 32.0-36.0 g/dL Red Cell Distribution Width 14.6 H 11.8-14.3 % Platelet Count 151 140-450 10^3/uL Mean Platelet Volume 9.9 6.9-10.8 fL Neutrophils (%) (Auto) 71.8 37.0-80.0 % Lymphocytes (%) (Auto) 16.2 10.0-50.0 % Monocytes (%) (Auto) 10.1 0.0-12.0 % Eosinophils (%) (Auto) 1.2 0.0-7.0 % Basophils (%) (Auto) 0.7 0.0-2.0 % Neutrophils # (Auto) 10.1 H 1.6-8.6 10 ^3/uL Lymphocytes # (Auto) 2.3 0.4-5.4 10 ^3/uL Monocytes # (Auto) 1.4 H 0-1.3 10 ^3/uL Eosinophils # (Auto) 0.2 0-0.8 10 ^3/uL Basophils # (Auto) 0.1 0-0.2 10 ^3/uL Nucleated Red Blood Cells 0.0 % Sodium Level 148 H 136-145 mmol/L Potassium Level 3.4 L 3.5-5.1 mmol/L Chloride Level 111 H 98-107 mmol/L Carbon Dioxide Level 28 20-31 mmol/L Anion Gap 9 5-15 Blood Urea Nitrogen 17 9-23 mg/dL Creatinine 0.78 0.550-1.02 mg/dL Glomerular Filtration Rate Calc 79 >90 mL/min BUN/Creatinine Ratio 21.8 H 10.0-20.0 Serum Glucose 110 H 74-106 mg/dL Calcium Level 9.4 8.7-10.4 mg/dL Troponin I High Sensitivity 63 *H </=34 ng/L Urine Color Yellow Yellow Urine Clarity Clear Clear Urine pH 6.0 5.0-9.0 Urine Specific [place] 1.045 H 1.001-1.035 Urine Protein 1+ H Negative Urine Ketones Negative Negative Urine Blood Negative Negative /uL Urine Nitrite Negative Negative Urine Bilirubin Negative Negative Urine Urobilinogen 2 H Negative mg/dL Urine Leukocyte Esterase Negative Negative /uL Urine RBC 2 0 - 4 /hpf Urine Microscopic WBC 1 0-5 /HPF Urine Squamous Epithelial Cells Few <5 /hpf Urine Bacteria None seen None Seen /hpf Urine Hyaline Casts Few 0 - 2 /lpf Urine Glucose 1+ H Normal mg/dL Prothrombin Time 12.8 H 9.3-11.8 sec Prothrombin Time INR 1.23 H 0.9-1.15 Activated Partial Thromboplast Time 32.5 24.5-34.5 SEC Lactic Acid Level 1.7 0.4-2.0 mmol/L Magnesium Level 1.7 1.6-2.6 mg/dL Total Bilirubin 0.5 0.2-1.0 mg/dL Aspartate Amino Transferase (AST) 15 13-40 U/L Alanine Aminotransferase (ALT) 12 7-40 U/L Alkaline Phosphatase 93 46-116 U/L B-Type Natriuretic Peptide 251.09 0-100 pg/mL Total Protein 7.3 5.7-8.2 g/dL Albumin 3.5 3.2-4.8 g/dL Assessment acute cva htn pad HL chf Plan/Recommendation check echo pt is SR asa, statiin permissive htn mri today fu neuro recs Plan discussed with: Patient WOLFDAVID MD Sep 20, 2024 13:07
[2024-09-21] VITALS (7 sets, daily range): BP systolic 124–144; BP diastolic 51–74; PULSE 71–121; RESP 16–20; TEMP 97.7–98.6; O2SAT 96–99
[2024-09-21 06:31] LABS: Basophils # (auto) 0.1 10 ^3/uL (0-0.2); Basophils % (auto) 0.6 % (0.0-2.0); Eosinophils # (auto) 0.2 10 ^3/uL (0-0.8); Eosinophils % (auto) 2.2 % (0.0-7.0); Hematocrit 29.6 % (36.0-46.0); Hemoglobin 9.6 g/dL (12.2-16.2); Lymphocytes # (auto) 1.9 10 ^3/uL (0.4-5.4); Lymphocytes % (auto) 22.2 % (10.0-50.0); Mean Corpuscular Hemoglobin 29.1 pg (28.0-32.0); Mean Corpuscular Hgb Conc. 32.5 g/dL (32.0-36.0); Mean Corpuscular Volume 89.6 fL (80.0-100.0); Monocytes # (auto) 0.8 10 ^3/uL (0-1.3); Monocytes % (auto) 9.9 % (0.0-12.0); Neutrophils # (auto) 5.6 10 ^3/uL (1.6-8.6); Neutrophils % (auto) 65.1 % (37.0-80.0); Nucleated Red Blood Cells % 0.1 %; Platelet Count (auto) 200 10^3/uL (140-450); Red Cell Distribution Width 14.4 % (11.8-14.3); White Blood Cell 8.6 10^3/uL (4.4-10.8)
[2024-09-21 06:39] LABS: Carbon Dioxide 29 mmol/L (20-31)
[2024-09-21 06:40] LABS: Calcium 9.4 mg/dL (8.7-10.4)
[2024-09-21 06:44] LABS: Glucose 97 mg/dL (74-106)
[2024-09-21 06:45] LABS: BUN/Creatinine Ratio 15.6 (10.0-20.0); Blood Urea Nitrogen 14 mg/dL (9-23)
[2024-09-21 06:47] LABS: Anion Gap 8 (5-15); Chloride 110 mmol/L (98-107); Potassium 3.4 mmol/L (3.5-5.1); Sodium 147 mmol/L (136-145)
--- NOTE | 2024-09-21 14:17 | DVHDS2 ---
Discharge Summary Date of Admission Sep 19, 2024 at 22:54 Date of Discharge: Sep 21, 2024 Labs/Diagnostic Data: Laboratory Results Test 09/21/24 11:11 09/21/24 05:50 09/20/24 07:23 09/19/24 18:02 POC Glucose 210 mg/dl (70-106) White Blood Count 8.6 10^3/uL (4.4-10.8) Red Blood Count 3.30 10^6/uL (4.0-5.20) Hemoglobin 9.6 g/dL (12.2-16.2) Hematocrit 29.6 % (36.0-46.0) Mean Corpuscular Volume 89.6 fL (80.0-100.0) Mean Corpuscular Hemoglobin 29.1 pg (28.0-32.0) Mean Corpuscular Hemoglobin Concent 32.5 g/dL (32.0-36.0) Red Cell Distribution Width 14.4 % (11.8-14.3) Platelet Count 200 10^3/uL (140-450) Mean Platelet Volume 9.9 fL (6.9-10.8) Neutrophils (%) (Auto) 65.1 % (37.0-80.0) Lymphocytes (%) (Auto) 22.2 % (10.0-50.0) Monocytes (%) (Auto) 9.9 % (0.0-12.0) Eosinophils (%) (Auto) 2.2 % (0.0-7.0) Basophils (%) (Auto) 0.6 % (0.0-2.0) Neutrophils # (Auto) 5.6 10 ^3/uL (1.6-8.6) Lymphocytes # (Auto) 1.9 10 ^3/uL (0.4-5.4) Monocytes # (Auto) 0.8 10 ^3/uL (0-1.3) Eosinophils # (Auto) 0.2 10 ^3/uL (0-0.8) Basophils # (Auto) 0.1 10 ^3/uL (0-0.2) Nucleated Red Blood Cells 0.1 % Sodium Level 147 mmol/L (136-145) Potassium Level 3.4 mmol/L (3.5-5.1) Chloride Level 110 mmol/L (98-107) Carbon Dioxide Level 29 mmol/L (20-31) Anion Gap 8 (5-15) Blood Urea Nitrogen 14 mg/dL (9-23) Creatinine 0.90 mg/dL (0.550-1.02) Glomerular Filtration Rate Calc 67 mL/min (>90) BUN/Creatinine Ratio 15.6 (10.0-20.0) Serum Glucose 97 mg/dL (74-106) Calcium Level 9.4 mg/dL (8.7-10.4) Troponin I High Sensitivity 63 ng/L (</=34) Urine Color Yellow (Yellow) Urine Clarity Clear (Clear) Urine pH 6.0 (5.0-9.0) Urine Specific [place]stock 1.045 (1.001-1.035) Urine Protein 1+ (Negative) Urine Ketones Negative (Negative) Urine Blood Negative /uL (Negative) Urine Nitrite Negative (Negative) Urine Bilirubin Negative (Negative) Urine Urobilinogen 2 mg/dL (Negative) Urine Leukocyte Esterase Negative /uL (Negative) Urine RBC 2 /hpf (0 - 4) Urine Microscopic WBC 1 /HPF (0-5) Urine Squamous Epithelial Cells Few /hpf (<5) Urine Bacteria None seen /hpf (None Seen) Urine Hyaline Casts Few /lpf (0 - 2) Urine Glucose 1+ mg/dL (Normal) Test 09/19/24 16:25 Prothrombin Time 12.8 sec (9.3-11.8) Prothrombin Time INR 1.23 (0.9-1.15) Activated Partial Thromboplast Time 32.5 SEC (24.5-34.5) Lactic Acid Level 1.7 mmol/L (0.4-2.0) Magnesium Level 1.7 mg/dL (1.6-2.6) Total Bilirubin 0.5 mg/dL (0.2-1.0) Aspartate Amino Transferase (AST) 15 U/L (13-40) Alanine Aminotransferase (ALT) 12 U/L (7-40) Alkaline Phosphatase 93 U/L (46-116) B-Type Natriuretic Peptide 251.09 pg/mL (0-100) Total Protein 7.3 g/dL (5.7-8.2) Albumin 3.5 g/dL (3.2-4.8) Other Laboratory Tests 09/21/24 05:50 Brief Hx & Hospital Course: 74-year-old female with past history of CVA, dementia, COPD, CHF, hypertension, hyperlipidemia Presents with complaints of sudden onset Altered mental status. Information in this HPI is limited due to the patient's current cognitive status And acquired from the patient Franco via telephone. Patient states At her bedline the patient is bedbound and Speaks small phrases softly. He has to carry her and move her around. Also endorses She was having difficulty swallowing her food during breakfast. The patient was sitting down eating lunch She having difficulty swallowing her food, Began To experience difficulty breathing, And suddenly became altered. While in the emergency department patient did go into An accelerated Cardiac rhythm 158 to 187. Endorsed her hot shot is Dr. Wolf. There is no reported fevers, chills, Prior episodes of shortness of breath, chest pain, leg swelling She is admitted and underwent workup and evaluated in the hospital which is essentially normal. Symptoms are more related to her dementia which may be progressing. Patient otherwise clinically remained stable. Rest of her workup given her normal it is felt she could be safely discharged home with home health. Patient's also given the options of hospice care given her continued declined. At present he prefers home health and we will think about hospice at a later date. She has been discharged home with home health given no other workup is required and not having any other acute issues. Consults/Reason for consult EXAMINATION: MRI BRAIN HEAD WO CONTRAST INDICATION: CVA COMPARISON: CTA head 09/19/2024 TECHNIQUE: Only axial diffusion and susceptibility weighted and axial T2 images were obtained. FINDINGS: The obtained MR images are degraded by motion artifact. There is no restricted diffusion to suggest acute infarct.. There is a moderate size chronic infarct in the left parietal lobe. There is no gross evidence of hemorrhage, mass, mass effect or midline shift. There is no hydrocephalus or extra-axial fluid collection. The visualized intracranial vasculature demonstrates appropriate flow-voids. The visualized paranasal sinuses and mastoid air cells are clear. Impression: There is no evidence of acute infarct or obvious intracranial hemorrhage. HS:Y ATED BY: FRANCESCO MERRITT MD DICTATED DATE/TIME: 09/20/24 3163 Operations or Procedures APPROVED REPORT EXAM: Two-dimensional and M-mode echocardiogram with Doppler and color Doppler. Blood Pressure: 143/73 mmHg INDICATION CVA, elevated trops RISK FACTORS Height: 67, Weight: 138 DIMENSIONS LVDd 4.9 (3.8-5.7cm) LA (2D) 4.4 (1.9-4.0cm) Aortic Root 2.9 (2.0- 3.7cm) LVDs 4.4 (2.5-4.0cm) LA (MM) (1.9-4.0cm) Aortic Cusp Exc 1.1 (1.5- 2.0cm) EF (%) 25.0 (55-70%) Rt. Atrium 3.9 (1.9-4.0cm) Asc. Aorta cm IVSd 1.4 (0.7-1.1cm) RV (D) (1.8-2.4cm) PWd 1.0 (0.7-1.1cm) Mitral Valve Mitral Mitral Stenosis E wave 0.96m/s MV Mean GR. 2mmHg A wave 0.34m/s MV Peak GR. 95mmHg E/A ratio 2.8 2D MVA cm2 DECEL Time 180ms PRESS 1/2 Time ms Aortic Valve Aortic Valve Aortic Stenosis V1 0.76m/s AO Mean GR. 6mmHg V2 1.62m/s AO Peak GR. 11mmHg LVOT Diameter 2.2 (1.8-2.4cm) Doppler JOSEPH 1.78cm2 Pulmonic Valve V2 0.85m/s Tricuspid Valve TR Velocity 3.77m/s RVSP 68mmHg Conclusion lvef 30% by visual estimate dilated LV aortic sclerosis mild mitral regurg SIGNED BY: DAVID WOLF MD SIGNED DATE/TIME: 09/21/24 1545 Condition at Discharge: Stable Final Diagnosis/Problems List Dehydration, advanced dementia with bed-bound status, coronary artery disease Discharge Disposition: Home with Health Services Discharge Instruct/Medications Diet: Consistent carbohydrate, Cardiac 2g Na,low cholest Activity: No Restrictions, As Tolerated Activity comment: Fall precautions and to ambulate with the assistance/walker Follow Up/Referral: Primary care physician in 2 weeks to further discuss regarding advanced care acidotic to send to consider palliative/hospice services due to progressive dementia with poor oral intake. Medications: As per discharge med reconciliation list Continued Medications: Amlodipine Besylate (Amlodipine Besylate) 5 Mg Tab 1 TAB PO DAILY Apixaban Base (Eliquis) 5 Mg Tab 5 MG PO BID Atorvastatin Calcium (Atorvastatin Calcium) 20 Mg Tab 1 TAB PO DAILY Cholecalciferol (Vitamin D) 5,000 Unit Tab 5000 UNIT PO DAILY, TAB Donepezil Hydrochloride (Donepezil Hcl) 10 Mg Tab 10 MG PO DAILY Glipizide (Glipizide) 5 Mg Tab 5 MG PO DAILY for 30 Days, MG Losartan Potassium (Losartan Potassium) 25 Mg Tab 5 MG PO DAILY, MG Memantine Hydrochloride (Memantine HCl) 5 Mg Tab 5 MG PO, TAB Discontinued Medications: Furosemide (Furosemide) 40 Mg Tab 40 MG PO BID Mupirocin (Pseudomonas Fluores (Mupirocin) 2 % Oin 2 % TOP BID Apply ointment topically to affected area twice daily. Discharge Statement: "Patient was advised to return to the ER or call 911 if any headaches, dizziness, shortness of breath, chest pain, abdominal pain, bleeding, fevers, or worsening of medical condition. Patient was counseled about treatment plan, medications, possible side effects, patientverbalized understanding. All questions were answered to the best of my ability. This discharge took greater then 30 minutes in planning, reviewing documentation, counseling the patient, and discussing with other team members." ASSESSMENT ASSESSMENT Assessment Dehydration, advanced dementia with bed-bound status, coronary artery disease PATRIC BARNETT MD Sep 21, 2024 14:17
--- NOTE | 2024-09-21 15:46 | DVHSR ---
APPROVED REPORT EXAM: Two-dimensional and M-mode echocardiogram with Doppler and color Doppler. Blood Pressure: 143/73 mmHg INDICATION CVA, elevated trops RISK FACTORS Height: 67, Weight: 138 DIMENSIONS LVDd4.9 (3.8-5.7cm)LA (2D)4.4 (1.9-4.0cm)Aortic Root2.9 (2.0-3.7cm) LVDs4.4 (2.5-4.0cm)LA (MM) (1.9-4.0cm)Aortic Cusp Exc1.1 (1.5-2.0cm) EF (%) 25.0 (55-70%)Rt. Atrium3.9 (1.9-4.0cm)Asc. Aorta cm IVSd1.4 (0.7-1.1cm)RV (D) (1.8-2.4cm) PWd1.0 (0.7-1.1cm) Mitral Valve MitralMitral Stenosis E wave0.96m/sMV Mean GR.2mmHg A wave0.34m/sMV Peak GR.95mmHg E/A ratio2.82D MVAcm2 DECEL [id number] 1/2 [place] Aortic Valve Aortic ValveAortic Stenosis V10.76m/Brenna Mean GR.6mmHg V21.62m/Brenna Peak GR.11mmHg LVOT Diameter2.2 (1.8-2.4cm)Doppler AVA1.78cm2 Pulmonic Valve V20.85m/s Tricuspid Valve TR Velocity3.77m/s [id number] Conclusion lvef 30% by visual estimate dilated LV aortic sclerosis mild mitral regurg
[2024-09-22 01:05] VITALS: BP 146/89; PULSE 112; RESP 19; TEMP 97.7; O2SAT 100
[2024-09-22 05:09] VITALS: BP 140/90; PULSE 113; RESP 20; TEMP 97.4; O2SAT 98
[2024-09-22 06:26] LABS: Basophils # (auto) 0.1 10 ^3/uL (0-0.2); Basophils % (auto) 0.9 % (0.0-2.0); Eosinophils # (auto) 0.1 10 ^3/uL (0-0.8); Eosinophils % (auto) 1.6 % (0.0-7.0); Hematocrit 28.7 % (36.0-46.0); Hemoglobin 9.2 g/dL (12.2-16.2); Lymphocytes % (auto) 28.4 % (10.0-50.0); Mean Corpuscular Hemoglobin 28.6 pg (28.0-32.0); Mean Corpuscular Hgb Conc. 32.1 g/dL (32.0-36.0); Mean Corpuscular Volume 89.1 fL (80.0-100.0); Monocytes # (auto) 0.8 10 ^3/uL (0-1.3); Monocytes % (auto) 11.9 % (0.0-12.0); Neutrophils % (auto) 57.2 % (37.0-80.0); Nucleated Red Blood Cells % 0.1 %; Platelet Count (auto) 206 10^3/uL (140-450); Red Blood Cells 3.22 10^6/uL (4.0-5.20); Red Cell Distribution Width 14.6 % (11.8-14.3)
[2024-09-22 06:43] LABS: Anion Gap 8 (5-15); Carbon Dioxide 28 mmol/L (20-31); Sodium 145 mmol/L (136-145)
[2024-09-22 06:44] LABS: Calcium 9.2 mg/dL (8.7-10.4)
[2024-09-22 06:49] LABS: BUN/Creatinine Ratio 17.5 (10.0-20.0); Blood Urea Nitrogen 14 mg/dL (9-23)
[2024-09-22 06:56] LABS: Chloride 109 mmol/L (98-107); Glucose 123 mg/dL (74-106); Potassium 3.3 mmol/L (3.5-5.1)
[2024-09-22 08:00] VITALS: PULSE 117; PULSE 120; RESP 18; O2SAT 99
[2024-09-22 09:00] VITALS: BP 148/89; PULSE 120; RESP 18; TEMP 97.6; O2SAT 99
--- NOTE | 2024-09-22 12:13 | DVHDS2 ---
ASSESSMENT ASSESSMENT Hospital Course I have discharged the patient has yesterday however apparently home health is not arranged therefore she was not discharged. Meantime patient clinically stable in the hospital. Discussed with the nurse to reach out to social Service to see if they can arrange home health so that she can be discharged home. Continue present management. Assessment Dehydration, advanced dementia with bed-bound status, coronary artery disease PATRIC BARNETT MD Sep 22, 2024 12:13
[2024-09-22 13:00] VITALS: BP 153/87; PULSE 100; RESP 18; TEMP 98.2; O2SAT 99
[2024-09-22 16:57] VITALS: BP 147/88; PULSE 113
== END 2024-09-22 16:57 | disposition home health service (06) | DRG 640 ==
LOC: ER 15:22 → OVERFLOW 22:54 → TELE-EAST 09-20 04:10
PROVIDERS: ADMIT Nurse Practitioner Family; ATTEND Hospitalist
DX: E86.0 Dehydration (principal); R53.2 Functional quadriplegia; I47.10 Supraventricular tachycardia, unspecified; I50.9 Heart failure, unspecified; D72.829 Elevated white blood cell count, unspecified; F03.90 Unspecified dementia, unspecified severity, without behavioral disturbance, psychotic disturbance, mood disturbance, and anxiety; I11.0 Hypertensive heart disease with heart failure; R13.10 Dysphagia, unspecified; J44.9 Chronic obstructive pulmonary disease, unspecified; I25.10 Atherosclerotic heart disease of native coronary artery without angina pectoris; E78.5 Hyperlipidemia, unspecified; Z74.01 Bed confinement status; Z86.73 Personal history of transient ischemic attack (TIA), and cerebral infarction without residual deficits; Z79.899 Other long term (current) drug therapy; E11.9 Type 2 diabetes mellitus without complications
CPT/HCPCS: 36415; 70450; 70496; 70498; 70551; 71045; 80048; 80053; 81001; 82962; 83605; 83735; 83880; 84484; 85025; 85610; 85730; 92610; 93005; 93306; 96360; 97110; 97163; 99291; G0378; J1815; J2543